=== PATIENT | female | born 1955 | race Caucasian/White ===

== ENCOUNTER 2019-09-11 19:20 | Emergency (ER) | payer BC ==
[2019-09-11] MEDS ORDERED: HYDROcodone/Acetaminophen 10/325 mg Tablet ONE (20:05)
[2019-09-11] MEDS ORDERED: Ibuprofen 800 MG TAB ONE (20:05)
--- NOTE | 2019-09-11 20:20 | CT ---
CT OF THE BRAIN WTIHOUT CONTRAST: 09/11/[address] shows normal sized ventricles with no shift. No intracranial bleeding or extra-axial hematoma was seen. There is no sign of mass, stroke or edema. The skull appears intact. The visible paranasal sinuses and visible facial bones all appeared intact. There is no sinus opacification. The mastoid air cells are clear. IMPRESSION: No acute intracranial findings. POS: HOME
--- NOTE | 2019-09-11 20:34 | CT ---
CT OF THE CERVICAL SPINE: 09/11/[address] of the cervical spine was done following trauma. Axial slices were acquired followed by cor onal and sagittal reconstructions. No fracture, dislocation, or acute bony change was seen at any cervical level. The C1 to dens distanc e is normal and the soft tissues are normal in thickness. There is disc space narrowing at C5-C6 and to a lesser extent C6-C7. Findings by level follows: C1-C2: No acute findings. C2-C3: No acute findings. C3-C4: No acute findings. Minor foraminal narrowing bilaterally. C4-C5: Minor right foraminal narrowing. Some right facet arthritis. C5-C6: Moderate to severe bilateral foraminal narrowing due to osteophytes. The AP diameter of the ca nal at this level is about 10 mm. C6-C7: There may be a small central protrusion of this disc. MRI would be more sensitive. There is no foraminal stenosis. C7-T1: No acute findings. T1-T2: No acute findings. T2-T3: No acute findings. The lung apices are clear with no sign of pneumothorax. IMPRESSION: 1. No acute traumatic changes. 2. Possible disc herniation centrally at C6-C7. 3. Prominent osteophytes with foraminal narrowing at C5-C6. POS: HOME
--- NOTE | 2019-09-11 20:41 | CT ---
CT OF THE THORAX WITHOUT CONTRAST: 09/11/[address] of the chest was done following trauma. Axial slices were acquired followed by coronal and sagittal reconstructions. There are no acute traumatic findings in the chest. The mediastinum shows no sign of hematoma, mass o r adenopathy. The lungs are fully inflated and clear. There is no sign of parenchymal contusion, pleu ral effusion, or pneumothorax. The ribs and thoracic vertebrae appear intact. Attention is drawn to slice 40 in the axial images. There is a 1.2 cm rounded soft tissue density in the right breast at approximately 12 o'clock. A mass or cyst is possible, though this could just be a n area of asymmetric tissue. I would recommend at least an ultrasound of the area, and if the patient has not had a mammogram, then that should be considered. Scans went several slices into the upper abdomen. Both adrenal glands are not included, however, it i s apparent that there are multiple cystic lesions throughout the liver of varying sizes. Many are quiroga bcentimeter and the largest is 2.2 cm in size. No traumatic changes are seen in the visible portions of the upper abdomen. IMPRESSION: 1. No acute traumatic changes. 2. 1.2 cm rounded soft tissue density, right breast, about 12 o'clock. Follow-up needed to deter mine if this might be a cyst or mass. 3. Multiple cystic lesions of the liver. Statistically, this is more likely benign than not, but cystic metastases do occur. If there are prior studies elsewhere they would be helpful. If not, one might at least follow-up with an ultrasound to see if they are purely cystic. Correlate with clinical exam. Findings on all scans discussed with Dr. Burger at 6 on 09/11/2019. POS: HOME
== END 2019-09-11 20:11 | disposition home or self-care (01) ==
LOC: BURERS 19:20
DX: S06.9X1A Unspecified intracranial injury with loss of consciousness of 30 minutes or less, initial encounter (principal); S16.1XXA Strain of muscle, fascia and tendon at neck level, initial encounter; S29.012A Strain of muscle and tendon of back wall of thorax, initial encounter; V89.2XXA Person injured in unspecified motor-vehicle accident, traffic, initial encounter
CPT/HCPCS: 70450; 71250; 72125; G0390